=== PATIENT | female | born 1955 | race Caucasian/White ===

== ENCOUNTER → 2023-08-25 10:35 | Outpatient (REF) | payer BC, SELFPAY | LOC: HWRAD 10:35 | PROVIDERS: ATTENDING PHYSICIAN Family Medicine | DX: M85.9 Disorder of bone density and structure, unspecified (principal) | CPT/HCPCS: 77080 ==

== ENCOUNTER → 2023-12-08 06:36 | Day surgery (SDC) | payer BC, SELFPAY | LOC: GI 06:36 | PROVIDERS: ATTENDING PHYSICIAN Specialist | DX: Z12.11 Encounter for screening for malignant neoplasm of colon (principal); Z86.010 Personal history of colon polyps; K57.30 Diverticulosis of large intestine without perforation or abscess without bleeding; D12.3 Benign neoplasm of transverse colon | CPT/HCPCS: 45385; 88305 ==

== ENCOUNTER → 2024-02-15 10:16 | Outpatient (REF) | payer BC, SELFPAY | LOC: HWWDC 10:16 | PROVIDERS: ATTENDING PHYSICIAN Obstetrics & Gynecology; FAMILY PHYSICIAN Family Medicine | DX: Z12.31 Encounter for screening mammogram for malignant neoplasm of breast (principal) | CPT/HCPCS: 77063; 77067 ==

== ENCOUNTER → 2025-02-13 13:54 | Outpatient (REF) | payer BC, SELFPAY | LOC: HWRAD 13:54 | PROVIDERS: ATTENDING PHYSICIAN Family Medicine; REFERRING PHYSICIAN Obstetrics & Gynecology | DX: R14.0 Abdominal distension (gaseous) (principal); R19.00 Intra-abdominal and pelvic swelling, mass and lump, unspecified site | CPT/HCPCS: 76830; 76856 ==

== ENCOUNTER → 2025-02-15 13:13 | Outpatient (REF) | payer BC, MEDICARE, SELFPAY | LOC: RAD 13:13 | PROVIDERS: ATTENDING PHYSICIAN Family Medicine | DX: R18.0 Malignant ascites (principal) | CPT/HCPCS: 74177; Q9967 ==

== ENCOUNTER → 2025-02-20 13:07 | Outpatient (REF) | payer BC, MEDICARE, SELFPAY ==
[2025-02-20 13:25] VITALS: BP 130/91; BP_SYST 103
[2025-02-20 14:15] VITALS: BP 120/77
[2025-02-20 15:24] LABS: Body Fluid Second Tech AMA
== END ==
LOC: RADI 13:07
PROVIDERS: ATTENDING PHYSICIAN Family Medicine
DX: R18.8 Other ascites (principal)
CPT/HCPCS: 49083; 82042; 82945; 84157; 84478; 87015; 87070; 87205; 88112; 88305; 89051

== ENCOUNTER → 2025-03-01 12:17 | Outpatient (REF) | payer BC, MEDICARE, SELFPAY ==
[2025-03-01 12:42] VITALS: BP 124/95; BP_SYST 95
[2025-03-01 14:06] LABS: Body Fluid Second Tech US
== END ==
LOC: RADI 12:17
PROVIDERS: ATTENDING PHYSICIAN Family Medicine
DX: C80.1 Malignant (primary) neoplasm, unspecified (principal); R18.0 Malignant ascites
CPT/HCPCS: 49083; 89051

== ENCOUNTER → 2025-03-08 12:39 | Outpatient (REF) | payer BC, MEDICARE, SELFPAY ==
[2025-03-08 12:54] VITALS: BP 120/75; BP_SYST 92
[2025-03-08 13:35] VITALS: BP 106/67; BP_SYST 89
[2025-03-08 14:02] LABS: Body Fluid Second Tech HB
== END ==
LOC: RADI 12:39
PROVIDERS: ATTENDING PHYSICIAN Family Medicine
DX: R18.8 Other ascites (principal)
CPT/HCPCS: 49083; 89051

== ENCOUNTER → 2025-03-15 12:39 | Outpatient (REF) | payer BC, MEDICARE, SELFPAY ==
[2025-03-15 13:00] VITALS: BP 111/78; BP_SYST 94
[2025-03-15 13:28] VITALS: BP 105/72; BP_SYST 92
[2025-03-15 13:57] VITALS: BP 105/72
[2025-03-15 14:07] LABS: Body Fluid Second Tech RP
== END ==
LOC: RADI 12:39
PROVIDERS: ATTENDING PHYSICIAN Family Medicine
DX: R18.8 Other ascites (principal)
CPT/HCPCS: 49083; 89051

== ENCOUNTER → 2025-03-19 08:34 | Outpatient (REF) | payer BC, MEDICARE, SELFPAY ==
[2025-03-19 09:09] VITALS: BP 127/83; BP_SYST 82
[2025-03-19] MEDS: ANCEF 10 IV (09:30)
[2025-03-19 10:20] VITALS: BP 123/79; BP_SYST 82
[2025-03-19 12:32] LABS: Body Fluid Second Tech ASW
== END ==
LOC: RADI 08:34
PROVIDERS: ATTENDING PHYSICIAN Internal Medicine Hematology & Oncology; FAMILY PHYSICIAN Family Medicine
DX: C56.2 Malignant neoplasm of left ovary (principal); R18.8 Other ascites
CPT/HCPCS: 36561; 49083; 76937; 77001; 89051; 99152; 99153; C1788

== ENCOUNTER → 2025-03-28 12:24 | Outpatient (REF) | payer BC, MEDICARE, SELFPAY ==
[2025-03-28 12:49] VITALS: BP 106/75; BP_SYST 94
[2025-03-28 13:30] VITALS: BP 94/64
[2025-03-28 14:08] LABS: Body Fluid Second Tech CMB
== END ==
LOC: RADI 12:24
PROVIDERS: ATTENDING PHYSICIAN Family Medicine
DX: R18.8 Other ascites (principal); Z85.43 Personal history of malignant neoplasm of ovary
CPT/HCPCS: 49083; 89051

== ENCOUNTER → 2025-04-05 12:34 | Outpatient (REF) | payer BC, MEDICARE, SELFPAY ==
[2025-04-05 12:45] VITALS: BP 116/80; BP_SYST 91
[2025-04-05 13:25] VITALS: BP 106/70; BP_SYST 89
[2025-04-05 13:34] VITALS: BP 106/70
[2025-04-05 14:32] LABS: Body Fluid Second Tech EM
== END ==
LOC: RADI 12:34
PROVIDERS: ATTENDING PHYSICIAN Family Medicine; REFERRING PHYSICIAN Internal Medicine Hematology & Oncology
DX: R18.8 Other ascites (principal)
CPT/HCPCS: 49083; 89051

== ENCOUNTER → 2025-04-19 12:23 | Outpatient (REF) | payer BC, MEDICARE, SELFPAY | LOC: RADI 12:23 | PROVIDERS: ATTENDING PHYSICIAN Family Medicine | DX: R18.8 Other ascites (principal); Z53.8 Procedure and treatment not carried out for other reasons | CPT/HCPCS: 76705 ==

== ENCOUNTER → 2025-05-10 13:09 | Outpatient (REF) | payer BC, SELFPAY | LOC: HWRAD 13:09 | PROVIDERS: ATTENDING PHYSICIAN Internal Medicine Hematology & Oncology; FAMILY PHYSICIAN Family Medicine; REFERRING PHYSICIAN Obstetrics & Gynecology | DX: C56.2 Malignant neoplasm of left ovary (principal); L65.9 Nonscarring hair loss, unspecified | CPT/HCPCS: 71260; 74177; Q9967 ==